=== PATIENT | female | born 1980 | race Two or more races ===

== ENCOUNTER 2024-07-04 14:51 | Emergency (ER) | payer OTHER ==
[~2024-07-04] VITALS: Ht 170.2 cm; Wt 73.9 kg
[~2024-07-04 14:51] MED LIST: ATROVENT 00.5 MG/2.5 IH; OSEL75CA PO; WIXELA 100-501 EACH IH; ZYNCOF 20-400120 ML PO
[2024-07-04] MEDS ORDERED: RINGERS SOLUTION,LACTATED 1,000 ML IV STA (15:37)
[2024-07-04] MEDS ORDERED: FAMOtidine 10 MG/ML (4ML VIAL) IV STA (15:40)
[2024-07-04] MEDS ORDERED: ONDANSETRON HCL 2 MG/ML VIAL IV ONE (15:45)
[2024-07-04] MEDS ORDERED: METOCLOPRAMIDE HCL 10 MG in 0.9 % SODIUM CHLORIDE 50 ML IV ONE (15:45)
[2024-07-04] MEDS ORDERED: ONDANSETRON HCL 2 MG/ML VIAL ONE (15:59)
[2024-07-04] MEDS ORDERED: FAMOTIDINE/PF 20 MG/2 ML VIAL ONE (15:59)
[2024-07-04] MEDS ORDERED: METOCLOPRAMIDE HCL 5 MG/ML VIAL ONE (15:59)
[2024-07-04 16:35] LABS: HEMATOCRIT 41.4 % (36.0-45.00); HEMOGLOBIN 14.1 g/dL (12.0-15.00); MEAN CELL VOLUME 94.6 fL (80.00-100.00); MEAN CORPUSCULAR HEMOGLOBIN 32.1 pg (27.00-32.0); PLATELET COUNT 308 K/uL (150-450); RED BLOOD COUNT 4.38 M/uL (4.00-6.00)
[2024-07-04 16:56] LABS: CALCIUM 9.7 mg/dL (8.5-10.1); CREATININE SERUM 0.58 mg/dL (0.55-1.02); GFR 112.93; POTASSIUM 4.01 mEq/L (3.5-5.1)
[2024-07-04 17:59] LABS: PH,URINE 5.5 (5.0-8.0); URINE APPEARANCE Clear; URINE BILIRRUBIN Negative (NEGATIVE); URINE BLOOD Moderate; URINE COLOR Yellow; URINE GLUCOSE Negative (NEGATIVE); URINE LEUKOCYTE Negative; URINE NITRATE Negative; URINE PROTEIN 30 (NEGATIVE); URINE UROBILINOGEN 0.2 E.U./dl
[2024-07-04 18:04] LABS: URINE BACTERIA 396.5 uL (0.0-1933); URINE EPITHELIAL CELLS 20.7 uL (0.0-38.8)
[2024-07-04 18:16] LABS: URINE CAST 0.29 uL (0.0-1.40); URINE KETONE >=160 (NEGATIVE)
== END 2024-07-04 19:41 | disposition home or self-care (01) ==
LOC: ER 14:52
PROVIDERS: General Practice
DX: A05.0 Foodborne staphylococcal intoxication (principal); R11.10 Vomiting, unspecified